=== PATIENT | male | born 1960 ===

== ENCOUNTER 2021-09-29 17:45 | Inpatient (IN) | payer MEDICAID, OTHER ==
[2021-09-29] MEDS ORDERED: MAG HYDROX/AL HYDROX/SIMETH 30 ML CUP PO PRN (18:02)
[2021-09-29] MEDS ORDERED: ACETAMINOPHEN TAB 325 MG TAB PO PRN (18:02)
[2021-09-29] MEDS ORDERED: MAGNESIUM HYDROXIDE 2,400 MG/10 ML CUP PO PRN (18:02)
[2021-09-29] MEDS ORDERED: LORazepam 1 MG TAB PO PRN (18:04)
[2021-09-29] MEDS ORDERED: HALOPERIDOL LACTATE 5 MG/ML 1 ML VIAL IM PRN (18:04)
[2021-09-29] MEDS ORDERED: haloperidoL 5 MG TAB PO PRN (18:04)
[2021-09-29] MEDS ORDERED: LORazepam 2 MG/ML INJ IM PRN (18:04)
[2021-09-30] MEDS: ATORVASTATIN 40 MG TAB PO SCH ×2 (02:37→21:30)
[2021-09-30] MEDS: SENNOSIDES-DOCUSATE SODIUM 1 EACH TAB PO SCH ×4 (02:37→21:30)
[2021-09-30 06:50] LABS: Basophils # (A) 0.1 k/uL (0-0.2); Basophils % (A) 1 %; Eosinophils # (A) 0.1 k/uL (0-0.7); Eosinophils % (A) 2 %; HGB 12.8 gm/dL (13.0-17.5); Lymphocytes # (A) 1.7 k/uL (1.0-4.8); Lymphocytes % (A) 24 %; MCH 29.9 pg (25.0-35.0); MCV 93.5 fL (80.0-100.0); Mean Platelet Volume 9.3; Monocytes # (A) 0.7 k/uL (0-1.0); Monocytes % (A) 10 %; Neutrophils # (A) 4.4 k/uL (1.3-7.7); Neutrophils % (A) 63 %; Platelet Count 346 k/uL (150-450); RBC 4.28 m/uL (4.30-5.90); RDW 13.3 % (11.5-15.5)
[2021-09-30 07:07] LABS: ALT 25 U/L (4-49); AST 24 U/L (17-59); African American GFR (CKD) >90 (>60 ml/min/1.73 sqM); Albumin 4.1 g/dL (3.5-5.0); Alkaline Phosphatase 170 U/L (38-126); Anion Gap 11 mmol/L; Bilirubin, Delta 0.2 mg/dL (0.0-0.2); Bilirubin,Unconjugated 0.1 mg/dL (0.0-1.1); Blood Urea Nitrogen 23 mg/dL (9-20); Calcium 9.4 mg/dL (8.4-10.2); Carbon Dioxide 23 mmol/L (22-30); Chloride 104 mmol/L (98-107); Glucose 95 mg/dL (74-99); Non-African American GFR(CKD) >90 (>60 ml/min/1.73 sqM); Potassium 4.3 mmol/L (3.5-5.1); Sodium 138 mmol/L (137-145); Total Bilirubin 0.3 mg/dL (0.2-1.3); Total Protein 7.6 g/dL (6.3-8.2)
[2021-09-30] MEDS: METOPROLOL TARTRATE 25 MG TAB PO SCH (08:16)
[2021-09-30] MEDS: THIAMINE 100 MG TAB PO SCH (08:16)
[2021-09-30] MEDS: hydrALAZINE HCL 25 MG TAB PO SCH (08:16)
[2021-09-30] MEDS: FOLIC ACID 1 MG TAB PO SCH (08:16)
[2021-09-30] MEDS: NICOTINE 14MG/24HR PATCH TRANSDERM SCH (08:16)
[2021-09-30] MEDS ORDERED: SERTRALINE 100 MG TAB PO SCH (09:00)
[2021-09-30 10:52] LABS: Chol/HDL Ratio 4.22 Ratio; LDL Cholesterol,Calculated 71.2 mg/dL (0.0-131.0)
--- NOTE | 2021-09-30 13:40 | P.HP ---
Psychiatric H&P - . H&P Date: 09/30/21 History & Physical: Allergies Allergy/AdvReac Type Severity Reaction Status Date / Time Penicillins AdvReac Unknown Verified 09/29/21 18:02 Vital Signs Temp 97.3 F L 09/30/21 08:18 Pulse 103 H 09/30/21 08:18 Resp 20 09/30/21 08:18 BP 94/65 09/30/21 08:18 Pulse Ox 98 09/30/21 00:47 FiO2 Intake & Output 09/29/21 09/30/21 09/30/21 18:59 06:59 18:59 Weight 64 kg 61.49 kg Laboratory Last Values WBC 7.0 k/uL (3.8-10.6) 09/30/21 06:25 RBC 4.28 m/uL (4.30-5.90) L 09/30/21 06:25 Hgb 12.8 gm/dL (13.0-17.5) L 09/30/21 06:25 Hct 40.0 % (39.0-53.0) 09/30/21 06:25 MCV 93.5 fL (80.0-100.0) 09/30/21 06:25 MCH 29.9 pg (25.0-35.0) 09/30/21 06:25 MCHC 32.0 g/dL (31.0-37.0) 09/30/21 06:25 RDW 13.3 % (11.5-15.5) 09/30/21 06:25 Plt Count 346 k/uL (150-450) 09/30/21 06:25 MPV 9.3 09/30/21 06:25 Neutrophils % 63 % 09/30/21 06:25 Lymphocytes % 24 % 09/30/21 06:25 Monocytes % 10 % 09/30/21 06:25 Eosinophils % 2 % 09/30/21 06:25 Basophils % 1 % 09/30/21 06:25 Neutrophils # 4.4 k/uL (1.3-7.7) 09/30/21 06:25 Lymphocytes # 1.7 k/uL (1.0-4.8) 09/30/21 06:25 Monocytes # 0.7 k/uL (0-1.0) 09/30/21 06:25 Eosinophils # 0.1 k/uL (0-0.7) 09/30/21 06:25 Basophils # 0.1 k/uL (0-0.2) 09/30/21 06:25 Sodium 138 mmol/L (137-145) 09/30/21 06:25 Potassium 4.3 mmol/L (3.5-5.1) 09/30/21 06:25 Chloride 104 mmol/L (98-107) 09/30/21 06:25 Carbon Dioxide 23 mmol/L (22-30) 09/30/21 06:25 Anion Gap 11 mmol/L 09/30/21 06:25 BUN 23 mg/dL (9-20) H 09/30/21 06:25 Creatinine 0.79 mg/dL (0.66-1.25) 09/30/21 06:25 Est GFR (CKD-EPI)AfAm >90 (>60 ml/min/1.73 sqM) 09/30/21 06:25 Est GFR (CKD-EPI)NonAf >90 (>60 ml/min/1.73 sqM) 09/30/21 06:25 Glucose 95 mg/dL (74-99) 09/30/21 06:[address] Glu mg/dL 101 09/30/21 06:25 Hemoglobin A1c 5.1 % (0.0-6.0) 09/30/21 06:25 Calcium 9.4 mg/dL (8.4-10.2) 09/30/21 06:25 Total Bilirubin 0.3 mg/dL (0.2-1.3) 09/30/21 06:25 Conjugated Bilirubin 0.0 mg/dL (0.0-0.3) 09/30/21 06:25 Unconjugated Bilirubin 0.1 mg/dL (0.0-1.1) 09/30/21 06:25 Delta Bilirubin 0.2 mg/dL (0.0-0.2) 09/30/21 06:25 AST 24 U/L (17-59) 09/30/21 06:25 ALT 25 U/L (4-49) 09/30/21 06:25 Alkaline Phosphatase 170 U/L (38-126) H 09/30/21 06:25 Total Protein 7.6 g/dL (6.3-8.2) 09/30/21 06:25 Albumin 4.1 g/dL (3.5-5.0) 09/30/21 06:25 Triglycerides 136.00 mg/dL (0.00-149.00) 09/30/21 06:25 Cholesterol 129.00 mg/dL (0.00-200.00) 09/30/21 06:25 LDL Cholesterol, Calc 71.2 mg/dL (0.0-131.0) 09/30/21 06:25 VLDL Cholesterol, Calc 27.20 mg/dL (5.00-40.00) 09/30/21 06:25 HDL Cholesterol 30.60 mg/dL (40.00-60.00) L 09/30/21 06:25 Cholesterol/HDL Ratio 4.22 Ratio 09/30/21 06:25 TSH 1.150 mIU/L (0.465-4.680) 09/30/21 06:25 09/30/21 13:39 IDENTIFYING DATA: Patient is a , unemployed, 61-year-old male with significant history of bipolar disorder and alcohol use disorder presented to the hospital under petition and certification for suicidal ideation. HPI: Patient presented to the hospital on 09/30/2021, transferred from [facility] under petition and certification for suicidal ideation. The patient reports that he recently relapsed into heavy alcohol use after being sober for 140 days. Patient reports that he has been "just drinking, drinking, and drinking." He reports that after he relapsed, he went to the hospital, was discharge from the hospital, drank some more, and ended up hurting himself all mowing the lawn. 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 In regards to depressive symptoms, the patient reports that he has been feeling suicidal, endorses anhedonia, poor sleep, and general feelings of hopelessness. He however denies any prior attempts at suicide. The patient states that he has intrusive diagnosed as bipolar. He firmly believes his bipolar however is unable to list any specific symptoms of ney or hypomania. He is currently not endorsing any auditory or visual hallucinations. He is denying any paranoia or other delusions. The patient does have a heavy history of substance abuse. The patient reports that he was initially addicted to opiates however when he was on methadone, he began drinking heavily. He reports that his drug of choice became alcohol 2 years prior to this admission. PAST PSYCHIATRIC HISTORY: Patient states that he has been intrusive diagnosed with bipolar disorder, alcohol use disorder, and opiate use disorder. The patient reports that he has been on numerous psychiatric medications and is unable to recall their names. He reports multiple prior inpatient psychiatric hospitalizations including twice at [facility] this year. He is currently open with [facility] in [place] and sees Dr Sarmiento. Patient denies any history of suicide attempts in the past. PMH: Seizure disorder, HTN ALLERGIES: Penicillins CHEMICAL DEPENDENCY HISTORY: The patient reports that he has a history of opiate abuse. He reports that he has been 6 years sober from heroin and has been off methadone for the last 2 years. He is now current drug of choice is alcohol. He reports drinking a pint to a pint and a half of liquor per day. He also reports rare marijuana use. He states that he smokes 1 pack per day of tobacco. He reports multiple stints at rehab as well as 12 step programs. Patient's last alcoholic beverage was 15 days prior to this admission. FAMILY PSYCHIATRIC/SUBSTANCE USE HISTORY: No reported family psychiatric history. SOCIAL HISTORY: Patient was born and raised in [place], [place]. He is currently homeless. Prior to being homeless, the patient was in rehab, followed by a [facility], followed by rehab again, followed by hospitalization at [facility] followed by this hospitalization. He reports that he is . He reports no children. He denies any legal issues. He reports 12th grade education. MENTAL STATUS EXAM: General Appearance: Patient appears to be stated age is alert, directable, and attempts to cooperate. Patient appears to have disheveled hygiene and grooming. Behavior: Patient is seated without any agitated behavior. Eye contact is appropriate. Speech: Patient's speech is fluent and nonpressured. Mood/Affect: Patient reports their mood is depressed, affect is congruent and constricted. Suicidality/Homicidality: Patient denies having any homicidal ideation intent or plan. Denies any suicidal ideations intent or plan Perceptions: Patient denies any visual hallucinations and denies any auditory hallucinations Though content/process: There is no evidence of any delusional thought content and thought process is linear and goal-directed. Memory and concentration: AOX3, grossly intact for the purposes of this session. Can spell "WORLD" backwards Judgment and insight: Fair STRENGTHS/WEAKNESSES: Strength is that the patient is resourceful. Weakness is that the patient engages in heavy alcohol abuse. INTELLECT: average IMPRESSIONS: Major depressive disorder, recurrent, severe Alcohol use disorder Opiate use disorder, in remission Tobacco use disorder PLAN: -Patient is admitted under voluntary status to [facility] for stabilization of psychiatric symptoms and safety. Patient signed adult voluntary form and medication consent and is placed in patient's chart. -Medications : We'll increase Zoloft to 150 mg by mouth daily for depression/anxiety Increase Seroquel to 400 mg by mouth at bedtime for mood stabilization/augmentation -Ativan/Haldol PRN for agitation/aggression -Patient was counselled on substance abuse and desired to cut back on use -Patient was informed of the risks, benefits and side effects of the medication and patient verbally consented to taking the medications. Patient signed med consent form and was placed in chart. -Internal Medicine consult to perform medical evaluation and physical. -NRT - nicotine patch -SW on board for discharge planning. Encourage patient to participate in groups to work on coping skills.
[2021-09-30] MEDS: QUEtiapine 400 MG TAB PO SCH (21:31)
[2021-10-01] MEDS: METOPROLOL TARTRATE 25 MG TAB PO SCH (08:32)
[2021-10-01] MEDS: SERTRALINE 100 MG TAB PO SCH (08:32)
[2021-10-01] MEDS: THIAMINE 100 MG TAB PO SCH (08:32)
[2021-10-01] MEDS: SENNOSIDES-DOCUSATE SODIUM 1 EACH TAB PO SCH ×2 (08:32→21:49)
[2021-10-01] MEDS: FOLIC ACID 1 MG TAB PO SCH (08:32)
[2021-10-01] MEDS: hydrALAZINE HCL 25 MG TAB PO SCH (08:33)
[2021-10-01] MEDS: NICOTINE 14MG/24HR PATCH TRANSDERM SCH (08:33)
--- NOTE | 2021-10-01 13:56 | P.PN ---
Progress Note - Text Progress Note Date: 10/01/21 Interval History: Patient was seen resting in bed and was directable and agreeable to speak with web content writer in his room. Currently, the patient is not reporting any suicidal or homicidal ideation, intention, and/or plan. He is not reporting any auditory or visual hallucinations. He is denying any paranoia or other delusions. The patient reports improved sleep and improved appetite. He has been in adherent with his medications and is not endorsing any significant side effects at this time. The patient's only concern is arm pain secondary to his fall prior to this admission. Mental Status Exam: General Appearance: Patient appears to be stated age is alert, directable, and cooperative. Behavior: Patient is calmly seated without any agitated behavior. Speech: Patient's speech is fluent and nonpressured. Mood/Affect: Mood is improving mildly, affect is congruent and constricted. Suicidality/Homicidality: Patient denies having any suicidal or homicidal ideation intent or plan. Perceptions: Patient denies any visual hallucinations and denies any auditory hallucinations Though content/process: There is no evidence of any delusional thought content and thought process is linear and goal-directed. Memory and concentration: AOX3, grossly intact for the purposes of this session Judgment and insight: Improving mildly Vital Signs Temp 97.5 F L 10/01/21 06:52 Pulse 64 10/01/21 06:52 Resp 14 10/01/21 06:52 BP 118/69 10/01/21 06:52 Pulse Ox 98 09/30/21 00:47 FiO2 Assessment Major depressive disorder, recurrent, severe Alcohol use disorder Opiate use disorder, in remission Tobacco use disorder Plan: -Patient continues to meet criteria for inpatient psychiatric admission for symptom stabilization and safety. Patient has signed adult voluntary form and medication consent and was placed in patient's chart. Anticipate discharge on Monday. -Medications: Continue Zoloft 150 mg by mouth daily for depression/anxiety Continue Seroquel 400 mg by mouth at bedtime for mood stabilization/augmentation -When necessary Ativan and Haldol for agitation/aggression. -NRT - nicotine patch -SW on board for discharge planning. Encouraged the patient to participate in milieu.
[2021-10-01] MEDS: QUEtiapine 400 MG TAB PO SCH (21:49)
[2021-10-01] MEDS: ATORVASTATIN 40 MG TAB PO SCH (21:49)
--- NOTE | 2021-10-02 03:51 | P.CONS ---
History of Present Illness - Reason for Consult Consult date: 10/01/21 - History of Present Illness The patient is a 61-year-old male with a PMH of EtOH abuse, tobacco abuse, currently homeless who was transferred from [facility] the patient had been admitted due to depression. The patient reports that he continues to drink a pint of whiskey daily and smoking 1 pack of cigarettes daily. He reports suffering a fall while working in the yard and breaking his right humerus. He reports persistent weakness in the arm, especially with abduction. Reports ongoing pain in the right upper arm, 5 out of 10. Denied experiencing numbness or tingling. Denies fever, chills, chest pain, shortness of breath, nausea, vomiting, abdominal, diarrhea. Reports that his last drink was roughly 20 days ago. Review of systems: Pertinent positives and negatives as discussed in HPI, a complete review of systems was performed and all other systems are negative. Physical examination: General: non toxic, no distress, appears at stated age, normal weight Derm: no unusual rashes/lesions, no unusual ecchymoses, warm, dry Head: atraumatic, normocephalic, symmetric Eyes: EOMI, no lid lag, anicteric sclera ENT: Nose and ears atraumatic, no thrush, no pharyngeal erythema Neck: trachea midline, supple Mouth: no lip lesion, mucus membranes moist Cardiovascular: S1S2 reg, no murmur, no edema Lungs: CTA bilateral, no rhonchi, no rales , no accessory muscle use Abdominal: soft, nontender to palpation, no guarding Ext: Right upper extremity impaired abduction at the shoulder noted with woodworking machinist strength equal bilaterally, no gross muscle atrophy, no contractures Neuro: No gross focal neuro deficits noted Psych: Alert, oriented, appropriate affect Assessment/plan Right humeral fracture with impaired right upper extremity abduction -Obtain surgery and PT consults -Obtain RUE x-ray EtOH, tobacco abuse -Advised on importance of cessation Depression and suicidal ideation -As per psychiatry Thank you for allowing us to participate in the care of this patient. We will follow peripherally. Do not hesitate to contact us with questions. Someone can be reached from the [facility] hospitalist group at all hours of the day at [phone]. Past Medical History History of Any Multi-Drug Resistant Organisms: None Reported Smoking Status: Current every day smoker Past Alcohol Use History: Daily - Past Family History Mother Family Medical History: Hypertension Medications and Allergies Allergies Allergy/AdvReac Type Severity Reaction Status Date / Time Penicillins AdvReac Unknown Verified 09/29/21 18:02 Physical Exam Vitals: Vital Signs Temp Pulse Resp BP 10/01/21 06:52 97.5 F L 64 14 118/69 Results CBC & Chem 7: 09/30/21 06:25 09/30/21 06:25
[2021-10-02] MEDS: METOPROLOL TARTRATE 25 MG TAB PO SCH (08:48)
[2021-10-02] MEDS: NICOTINE 14MG/24HR PATCH TRANSDERM SCH (08:48)
[2021-10-02] MEDS: THIAMINE 100 MG TAB PO SCH (08:48)
[2021-10-02] MEDS: FOLIC ACID 1 MG TAB PO SCH (08:49)
[2021-10-02] MEDS: SERTRALINE 100 MG TAB PO SCH (08:49)
[2021-10-02] MEDS: hydrALAZINE HCL 25 MG TAB PO SCH (08:50)
[2021-10-02] MEDS: SENNOSIDES-DOCUSATE SODIUM 1 EACH TAB PO SCH ×2 (10:24→21:28)
--- NOTE | 2021-10-02 11:48 | P.PN ---
Subjective Progress Note Date: 10/02/21 Principal diagnosis: Mood disorder NOS Subjective the patient says that he has mood swings. He has been diagnosed in the past with bipolar. He denies any breanna manic episodes or hypomanic episodes. He says his moods vary from day to day. He will get up in the morning and be depressed all day or get up in the morning and feels tired all day. But he says when he feels good he is just functional that it does not cause any trouble. He does struggle with anxiety and has not felt that the Zoloft has helped any with anxiety irritability or tearfulness. He has been on 150 for some time. He has positive about the effects of the Seroquel but says that 400 mg it helps him sleep and helps him in the morning but it fades about midday. (This is one of the problems of Seroquel it often does not last a full day) Objective patient's self-care is minimal his hair is unwashed and uncombed. He was lying in bed at 11:30 in the morning. Eye contact was decreased. However he did's cooperate was a little sleepy gait and station were normal he was oriented. No signs of psychosis. No agitation. Assessment patient is scheduled to be discharged probably on Monday. He is navin lane to work with outpatient doctor to discuss the possibility of getting off of Zoloft as it does not seem to cause any trouble but does not help and he has taken it regular.(Zoloft can exacerbate the symptoms of mood swings) Plan increase Seroquel to 600 at night to see if that then gets it to last through the day for anxiety and mood stability. Objective - Vital Signs Vital signs: Vital Signs Temp 97.7 F 10/02/21 00:25 Pulse 124 H 10/02/21 00:25 Resp 12 10/02/21 00:25 BP 94/53 10/02/21 00:25 Pulse Ox 98 09/30/21 00:47 FiO2 - Labs CBC & Chem 7: 09/30/21 06:25 09/30/21 06:25
[2021-10-02] MEDS: ATORVASTATIN 40 MG TAB PO SCH (21:23)
[2021-10-02] MEDS: traZODone HCL 100 MG TAB PO PRN (21:24)
[2021-10-02] MEDS: QUEtiapine 200 MG TAB PO SCH (21:24)
[2021-10-03] MEDS: SERTRALINE 100 MG TAB PO SCH (08:32)
[2021-10-03] MEDS: NICOTINE 14MG/24HR PATCH TRANSDERM SCH (08:32)
[2021-10-03] MEDS: FOLIC ACID 1 MG TAB PO SCH (08:33)
[2021-10-03] MEDS: METOPROLOL TARTRATE 25 MG TAB PO SCH (08:33)
[2021-10-03] MEDS: THIAMINE 100 MG TAB PO SCH (08:33)
[2021-10-03] MEDS: hydrALAZINE HCL 25 MG TAB PO SCH (08:34)
[2021-10-03] MEDS: SENNOSIDES-DOCUSATE SODIUM 1 EACH TAB PO SCH ×2 (08:34→20:45)
--- NOTE | 2021-10-03 12:53 | P.PN ---
Subjective Progress Note Date: 10/03/21 Principal diagnosis: Mood disorder NOS Subjective says he is born a fine except look at night it is lying in bed didn't have any ulcerative. Dr. Zamudio decided he wanted (normal liver 2 days every 2 months so what he wants to talk to his Objective: The patient was sleeping in his room at 12:30 having missed an announcement for name eating that he should've gone to and complaining that was too poor around here. So his motivation is somewhat questionable doesn't wash his hair combing or take care of his appearance. Eye contact is somewhat down soft-spoken no aggression Assessment: Doesn't seem to have a lot of insight into what it takes to stay sober and to put his life together. Plan: No change in medication I did try to talk to mold about what it takes to deal with substance use he didn't disagree with me but he didn't seem all that interested. Prognosis is guarded Objective - Vital Signs Vital signs: Vital Signs Temp 97.7 F 10/02/21 00:25 Pulse 124 H 10/02/21 00:25 Resp 12 10/02/21 00:25 BP 94/53 10/02/21 00:25 Pulse Ox 98 09/30/21 00:47 FiO2 Intake & Output 10/02/21 10/03/21 10/03/21 18:59 06:59 18:59 Weight 61.9 kg - Labs CBC & Chem 7: 09/30/21 06:25 09/30/21 06:25
[2021-10-03] MEDS: QUEtiapine 200 MG TAB PO SCH (20:37)
[2021-10-03] MEDS: ATORVASTATIN 40 MG TAB PO SCH (20:37)
[2021-10-03] MEDS: traZODone HCL 100 MG TAB PO PRN (20:38)
[2021-10-04 06:59] VITALS: BP 122/68; PULSE 72; RESP 14; TEMP 97.6
[2021-10-04] MEDS: NICOTINE 14MG/24HR PATCH TRANSDERM SCH (08:40)
[2021-10-04] MEDS: THIAMINE 100 MG TAB PO SCH (08:41)
[2021-10-04] MEDS: METOPROLOL TARTRATE 25 MG TAB PO SCH (08:41)
[2021-10-04] MEDS: hydrALAZINE HCL 25 MG TAB PO SCH (08:42)
[2021-10-04] MEDS: FOLIC ACID 1 MG TAB PO SCH (08:42)
[2021-10-04] MEDS: SERTRALINE 100 MG TAB PO SCH (08:42)
[2021-10-04] MEDS: SENNOSIDES-DOCUSATE SODIUM 1 EACH TAB PO SCH (08:42)
--- NOTE | 2021-10-04 11:34 | P.DS ---
Providers Date of admission: 09/30/21 00:11 Expected date of discharge: 10/04/21 Attending physician: Mateusz Roberson MD Consults: 09/29/21 18:02 Consult Physician Routine Consulting Provider: Pia Paulino Consult Reason/Comments: medical H&P Do you want consulting provider notified?: Yes Primary care physician: Stated None - Discharge Diagnosis(es) (1) Major depressive disorder, recurrent severe without psychotic features Current Visit: Yes Status: Acute Priority: High (2) Alcohol use disorder Current Visit: Yes Status: Chronic Priority: Medium (3) Tobacco use disorder Current Visit: Yes Status: Chronic Priority: Medium (4) Opioid use disorder, moderate, in sustained remission Current Visit: No Status: Chronic Priority: Medium Hospital Course: Admission HPI: Patient is a , unemployed, 61-year-old male with significant history of bipolar disorder and alcohol use disorder presented to the hospital under petition and certification for suicidal ideation. Patient presented to the hospital on 09/30/2021, transferred from [facility] under petition and certification for suicidal ideation. The patient reports that he recently relapsed into heavy alcohol use after being sober for 140 days. Patient reports that he has been "just drinking, drinking, and drinking." He reports that after he relapsed, he went to the hospital, was discharge from the hospital, drank some more, and ended up hurting himself all mowing the lawn. 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 In regards to depressive symptoms, the patient reports that he has been feeling suicidal, endorses anhedonia, poor sleep, and general feelings of hopelessness. He however denies any prior attempts at suicide. The patient states that he has intrusive diagnosed as bipolar. He firmly believes his bipolar however is unable to list any specific symptoms of ney or hypomania. He is currently not endorsing any auditory or visual hallucinations. He is denying any paranoia or other delusions. The patient does have a heavy history of substance abuse. The patient reports that he was initially addicted to opiates however when he was on methadone, he began drinking heavily. He reports that his drug of choice became alcohol 2 years prior to this admission. Patient states that he has been previously diagnosed with bipolar disorder, alcohol use disorder, and opiate use disorder. The patient reports that he has been on numerous psychiatric medications and is unable to recall their names. He reports multiple prior inpatient psychiatric hospitalizations including twice at [facility] this year. He is currently open with [facility] in [place] and sees Dr Sarmiento. Patient denies any history of suicide attempts in the past. Hospital course: Upon admission to the unit patient was initially presenting as depressed, withdrawn, and suicidal. Furthermore, the patient's hygiene and grooming were poor and the patient displayed significant psychomotor retardation. Patient was however directable and agreeable to commence treatment. Patient got along well with other patients on the unit and followed unit protocol. Patient was compliant with the medications and denied any side effects throughout hospital course. Patient was started on Zoloft for depression/anxiety and Seroquel for mood augmentation and stabilization. Patient spoke of his stressors and engaged in therapy both group and individual. Patient was also seen by medical team for history and physical exam. Over the course of his hospitalization, the patient's Seroquel was titrated to its final dose of 600 mg at bedtime. Furthermore, the patient was evaluated by medical team and was started on a regimen for his high cholesterol and hypertension. On this course medications combined with individual and milieu therapies, the patient despite significant improvement regards to his depression. The patient became more future and goal oriented. On the day of discharge, the patient is not reporting any suicidal or homicidal ideation, intention, and/or plan. He is not reporting any auditory or visual hallucinations. He is denying any paranoia or other delusions. The patient has been adherent with his medications and is not reporting any significant side effects. He understands risks, benefits, and treatment alternatives. The patient also reports no medical issues or concerns. He denies any access to firearms other weapons. The patient was counseled in length on abstaining from all substances including alcohol and marijuana. The patient states that he is not interested in inpatient substance rehabilitation and will continue treatment in the outpatient setting with [facility]. Mental status exam: General Appearance: Patient appears to be stated age is alert, pleasant, and cooperative. Patient is in no acute distress and has fair hygiene and grooming Behavior: Patient is calmly seated without any agitated behavior. Speech: Patient's speech is fluent and nonpressured. Mood/Affect: Patient reports their mood is "doing okay", affect is congruent and euthymic. Suicidality/Homicidality: Patient denies having any suicidal or homicidal ideation intent or plan. Perceptions: Patient denies any auditory or visual hallucinations. Though content/process: There is no evidence of any delusional thought content and thought process is linear and goal-directed. Patient is future oriented. Memory and concentration: AOX3, grossly intact for the purposes of this session. Can spell "WORLD" backwards correctly. Judgment and insight: Improved with guarded prognosis Impression: Major depressive disorder, recurrent, severe Alcohol use disorder Opiate use disorder, in remission Tobacco use disorder Plan: -Continue with discharge today as patient has improved and stabilized psychiatrically and is not currently an imminent threat to himself and/or others. Patient will remain at chronically elevated risk for harm to self and/or others due to his homelessness and heavy alcohol use. -Continue medications: The patient will be discharged on the following medical meds for his hypertension, hyperlipidemia, and alcohol use disorder - folic acid, thiamine, metoprolol, atorvastatin, hydralazine. Habitrol patches for nicotine cessation Zoloft 150 mg by mouth daily for depression/anxiety Seroquel 600 mg by mouth daily at bedtime for augmentation/stabilization -Patient was counseled on the need for medication compliance and appropriate follow-up at mental health and also primary care for medical issues. Patient verbalized understanding and agreed. -Social work to arrange for and conduct family meeting to ensure safety upon discharge and answer any questions/concerns. Social work also to arrange for patients follow up appointments with [facility] for psychiatric care along with follow up with primary care provider. -Patient counseled on abstaining from recreational drugs and marijuana and alcohol. Was informed/educated on the adverse effects on their physical and mental health. Patient verbally agreed and understood. Patient was offered substance abuse treatment however declined at this time. -Patient was instructed to return to the hospital or seek immediate medical care if their psychiatric or medical symptoms do worsen or reoccur. -Psychoeducation and supportive therapy provided to patient. Risks and benefits of pharmacological treatment versus the risks and benefits of nontreatment weight and discussed. Informed consent discussion held. Common side effects of psychotropics discussed such as, but not limited to headache, GI disturbance, sexual dysfunction, movement disorders, sedation, and orthostatic hypotension. Life threatening and blackbox warnings of prescribed medications also discussed. Potential risks of operating a vehicle or heavy machinery discussed with patient at length. Advised on importance of compliance and a reliable and responsible manner. Patient advised to review FDA consumer labeling of all medications prior to taking. Patient verbalized understanding of potential risks, and agrees with current treatment plan. Patient advised to medically contact physician/emergency personnel if any acute changes in condition occur. Laboratory Results WBC 7.0 k/uL (3.8-10.6) 09/30/21 06:25 RBC 4.28 m/uL (4.30-5.90) L 09/30/21 06:25 Hgb 12.8 gm/dL (13.0-17.5) L 09/30/21 06:25 Hct 40.0 % (39.0-53.0) 09/30/21 06:25 MCV 93.5 fL (80.0-100.0) 09/30/21 06:25 MCH 29.9 pg (25.0-35.0) 09/30/21 06:25 MCHC 32.0 g/dL (31.0-37.0) 09/30/21 06:25 RDW 13.3 % (11.5-15.5) 09/30/21 06:25 Plt Count 346 k/uL (150-450) 09/30/21 06:25 MPV 9.3 09/30/21 06:25 Neutrophils % 63 % 09/30/21 06:25 Lymphocytes % 24 % 09/30/21 06:25 Monocytes % 10 % 09/30/21 06:25 Eosinophils % 2 % 09/30/21 06:25 Basophils % 1 % 09/30/21 06:25 Neutrophils # 4.4 k/uL (1.3-7.7) 09/30/21 06:25 Lymphocytes # 1.7 k/uL (1.0-4.8) 09/30/21 06:25 Monocytes # 0.7 k/uL (0-1.0) 09/30/21 06:25 Eosinophils # 0.1 k/uL (0-0.7) 09/30/21 06:25 Basophils # 0.1 k/uL (0-0.2) 09/30/21 06:25 Sodium 138 mmol/L (137-145) 09/30/21 06:25 Potassium 4.3 mmol/L (3.5-5.1) 09/30/21 06:25 Chloride 104 mmol/L (98-107) 09/30/21 06:25 Carbon Dioxide 23 mmol/L (22-30) 09/30/21 06:25 Anion Gap 11 mmol/L 09/30/21 06:25 BUN 23 mg/dL (9-20) H 09/30/21 06:25 Creatinine 0.79 mg/dL (0.66-1.25) 09/30/21 06:25 Est GFR (CKD-EPI)AfAm >90 (>60 ml/min/1.73 sqM) 09/30/21 06:25 Est GFR (CKD-EPI)NonAf >90 (>60 ml/min/1.73 sqM) 09/30/21 06:25 Glucose 95 mg/dL (74-99) 09/30/21 06:[address] Glu mg/dL 101 09/30/21 06:25 Hemoglobin A1c 5.1 % (0.0-6.0) 09/30/21 06:25 Calcium 9.4 mg/dL (8.4-10.2) 09/30/21 06:25 Total Bilirubin 0.3 mg/dL (0.2-1.3) 09/30/21 06:25 Conjugated Bilirubin 0.0 mg/dL (0.0-0.3) 09/30/21 06:25 Unconjugated Bilirubin 0.1 mg/dL (0.0-1.1) 09/30/21 06:25 Delta Bilirubin 0.2 mg/dL (0.0-0.2) 09/30/21 06:25 AST 24 U/L (17-59) 09/30/21 06:25 ALT 25 U/L (4-49) 09/30/21 06:25 Alkaline Phosphatase 170 U/L (38-126) H 09/30/21 06:25 Total Protein 7.6 g/dL (6.3-8.2) 09/30/21 06:25 Albumin 4.1 g/dL (3.5-5.0) 09/30/21 06:25 Triglycerides 136.00 mg/dL (0.00-149.00) 09/30/21 06:25 Cholesterol 129.00 mg/dL (0.00-200.00) 09/30/21 06:25 LDL Cholesterol, Calc 71.2 mg/dL (0.0-131.0) 09/30/21 06:25 VLDL Cholesterol, Calc 27.20 mg/dL (5.00-40.00) 09/30/21 06:25 HDL Cholesterol 30.60 mg/dL (40.00-60.00) L 09/30/21 06:25 Cholesterol/HDL Ratio 4.22 Ratio 09/30/21 06:25 TSH 1.150 mIU/L (0.465-4.680) 09/30/21 06:25 Vital Signs Temp 97.6 F 10/04/21 06:26 Pulse 72 10/04/21 06:26 Resp 14 10/04/21 06:26 BP 122/68 10/04/21 06:26 Pulse Ox 98 09/30/21 00:47 FiO2 Intake & Output 10/03/21 10/04/21 10/04/21 18:59 06:59 18:59 Weight 61.9 kg Allergies Allergy/AdvReac Type Severity Reaction Status Date / Time Penicillins AdvReac Unknown Verified 09/29/21 18:02 Patient Condition at Discharge: Stable Plan - Discharge Summary Discharge Rx Participant: No New Discharge Prescriptions: New Folic Acid 1 mg PO DAILY 30 Days tab QUEtiapine [SEROquel] 600 mg PO HS 30 Days tab Sertraline [Zoloft] 150 mg PO DAILY 30 Days tab hydrALAZINE HCL [Apresoline] 25 mg PO DAILY 30 Days tab traZODone HCL [Desyrel] 100 mg PO HS PRN 30 Days tab PRN Reason: Insomnia Nicotine 14Mg/24Hr Patch [Habitrol] 1 patch TRANSDERM DAILY 30 Days patch Atorvastatin [Lipitor] 40 mg PO HS 30 Days tab Metoprolol Tartrate [Lopressor] 25 mg PO DAILY 30 Days tab Thiamine [Vitamin B-1] 100 mg PO DAILY 30 Days tab Discharge Medication List Atorvastatin [Lipitor] 40 mg PO HS 30 Days tab 10/04/21 [Rx] Folic Acid 1 mg PO DAILY 30 Days tab 10/04/21 [Rx] Metoprolol Tartrate [Lopressor] 25 mg PO DAILY 30 Days tab 10/04/21 [Rx] Nicotine 14Mg/24Hr Patch [Habitrol] 1 patch TRANSDERM DAILY 30 Days patch 10/04/21 [Rx] QUEtiapine [SEROquel] 600 mg PO HS 30 Days tab 10/04/21 [Rx] Sertraline [Zoloft] 150 mg PO DAILY 30 Days tab 10/04/21 [Rx] Thiamine [Vitamin B-1] 100 mg PO DAILY 30 Days tab 10/04/21 [Rx] hydrALAZINE HCL [Apresoline] 25 mg PO DAILY 30 Days tab 10/04/21 [Rx] traZODone HCL [Desyrel] 100 mg PO HS PRN 30 Days tab 10/04/21 [Rx] Follow up Appointment(s)/Referral(s): Aubree Maravilla [Other] - 10/06/21 2:30 pm Floyd Costa DO [REFERRING] - 1 Week Aidan Blackburn MD [STAFF PHYSICIAN] - 1 Week Patient Instructions/Handouts: How to Stop Smoking (DC), Depression (DC) Activity/Diet/Wound Care/Special Instructions: Avoid the use of street drugs and alcohol. Take all prescriptions as prescribed. When you are in need of refills on your medications, please contact your medical provider and/or outpatient psychiatrist to have this done. Please go to scheduled outpatient appointment for aftercare treatment. If symptoms return or become worse, call the crisis line at and/or go to the nearest emergency room for evaluation. follow up with [facility] [address], [place], , call for appointment Discharge Disposition: HOME SELF-CARE
== END 2021-10-04 14:45 | disposition home or self-care (01) | DRG 885 ==
LOC: 3MHU 09-30 00:11
PROVIDERS: ADMIT Psychiatry & Neurology Psychiatry; ATTEND Psychiatry & Neurology Psychiatry
DX: F33.2 Major depressive disorder, recurrent severe without psychotic features (principal); S42.301A Unspecified fracture of shaft of humerus, right arm, initial encounter for closed fracture; R45.851 Suicidal ideations; F41.9 Anxiety disorder, unspecified; G40.909 Epilepsy, unspecified, not intractable, without status epilepticus; I10 Essential (primary) hypertension; W19.XXXA Unspecified fall, initial encounter; Y92.096 Garden or yard of other non-institutional residence as the place of occurrence of the external cause; Y93.H2 Activity, gardening and landscaping; Z59.00 Homelessness unspecified; F11.21 Opioid dependence, in remission; F10.10 Alcohol abuse, uncomplicated; E78.00 Pure hypercholesterolemia, unspecified; Z71.6 Tobacco abuse counseling; F17.210 Nicotine dependence, cigarettes, uncomplicated; Z88.0 Allergy status to penicillin; Z79.899 Other long term (current) drug therapy; Z82.49 Family history of ischemic heart disease and other diseases of the circulatory system; Z63.5 Disruption of family by separation and divorce
CPT/HCPCS: 80053; 80061; 82248; 83036; 84443; 85025